=== PATIENT | male | born 1990 | race Caucasian/White ===

== ENCOUNTER 2020-12-15 21:09 | Emergency (ER) | payer SELFPAY ==
[~2020-12-15] VITALS: Ht 188 cm; Wt 81.8 kg
[~2020-12-15 21:09] MED LIST: FAMO-63 PO
--- NOTE | 2020-12-15 21:18 | PHYS DOC ---
Past History Past Medical History: No Pertinent History Past Surgical History: No Surgical History Alcohol Use: None Drug Use: Marijuana General Adult HPI: HPI: ",.., I ve been blacking out when I do Meth, or K2.. this has not happened bef ore.. but it keeps happing the past 2 weeks.. " " My brother is my dealer.. .maybe he is putting something in it.. I never had problems with passing out before when I use drugs.." Patient is a 30 year old male who presents with complaints of blacking out x 4 today after K2, meth and Marijuana.. Patient has history of polysubstance abuse. Patient denies any trauma. Patient denies any specific ill contacts. No recent travel. Patient states that after using meth and K2 he has blacked out. Patient denies any injury. No recent travel. No history mental suppression. Concerned that his drugs have been laced. Patient had similar type complaints on 02/21/2016 of syncope after diarrhea episode. Review of Systems: Review of Systems: Constitutional: Denies fever or chills Eyes: Denies change in visual acuity HENT: Denies nasal congestion or sore throat Respiratory: Denies cough or shortness of breath Cardiovascular: Denies chest pain or edema GI: Denies abdominal pain, nausea, vomiting, bloody stools or diarrhea : Denies dysuria Musculoskeletal: Denies back pain or joint pain Integument: Denies rash Neurologic: Complains of syncope after drug use Endocrine: Denies polyuria or polydipsia Lymphatic: Denies swollen glands Psychiatric: Denies depression or anxiety Family History: Family History: Noncontributory presentation. Current Medications: Current Meds: See nursing for home meds Allergies: Allergies: Allergies Coded Allergies Type Severity Reaction Last Updated Verified No Known Drug Allergies 02/21/16 No Physical Exam: PE: Constitutional: , no acute distress, non-toxic appearance. [] HENT: Normocephalic, atraumatic, bilateral external ears normal, oropharynx moist, no oral exudates, nose swollen turbinates clear rhinorrhea Eyes: PERRLA, EOMI, conjunctiva normal, no discharge. [] Neck: Normal range of motion, no tenderness, supple, no stridor. [] Cardiovascular:Heart rate regular rhythm, no murmur [] Lungs & Thorax: Bilateral breath sounds equal apex less scattered wheezes on auscultation [] Abdomen: Bowel sounds normal, soft, no tenderness, no masses, no pulsatile masses. [] Skin: Warm, dry, no erythema, no rash. [] Back: No tenderness, no CVA tenderness. [] Extremities: No tenderness, no cyanosis, no clubbing, ROM intact, no edema. [] Neurologic: Alert and oriented X 3, normal motor function, normal sensory function, no focal deficits noted. [] DTRs +2 patella and brachial. Amatory without problems. No drift. [employer] Operator equal. Psychologic: Affect anxious, judgement normal, mood normal. [] EKG: EKG: My interpretation EKG shows sinus rhythm at 78 bpm. Nonspecific T wave changes in inferior leads. But no findings of acute STEMI of contralateral changes. [] Radiology/Procedures: Radiology/Procedures: [address] [address] IMAGING REPORT Signed PATIENT: DIANE SERRA ACCOUNT: [id number] : 1990 LOCATION: ER AGE: 30 SEX: M EXAM STATUS: REG ER ORD. PHYSICIAN: REYNA PIKE MD REASON: syncope, FALL PROCEDURE: CT HEAD AND CERVICAL SPINE WO CT HEAD AND C-SPINE WO dated 12/15/2020 9:43 PM Indication:Reason: syncope, FALL / Spl. Instructions: / History: Comparison: No comparison is available. Technique: Helical CT images were obtained. Sagittal and coronal reconstructions were performed. One or more of the following individualized dose reduction techniques were utilized for this examination: 1. Automated exposure control 2. Adjustment of the mA and/or kV according to patient size 3. Use of iterative reconstruction technique Findings: CT head: There is no apparent intracranial hemorrhage or abnormal extra-axial fluid collection. No area of abnormal density is seen in the brain. The ventricles and basilar cisterns are normally positioned. Bone windows demonstrate no apparent fracture of the skull or abnormal mastoid opacification. CT cervical spine: Alignment is normal. There is no loss of vertebral body height or vertebral soft tissue swelling. No fracture line is seen. Intervertebral discs are not narrowed. Evaluation of the soft tissue components of the canal is limited without intrathecal contrast. IMPRESSION: CT head: No acute abnormality. CT cervical spine: No acute abnormality. Electronically signed by: Sharath Mauro Jr., MD (12/15/2020 10:21 PM) [facility] DICTATED AND SIGNED BY: SHARATH MAURO Jr, MD DATE: 12/15/202216 CC: REYNA PIKE MD; PCP,NO ~MTH0 0 [][place] [address] IMAGING REPORT Signed PATIENT: DIANE SERRA ACCOUNT: [id number] : 1990 LOCATION: ER AGE: 30 SEX: M EXAM STATUS: REG ER ORD. PHYSICIAN: REYNA PIKE MD REASON: fall , head injury , syncope PROCEDURE: CT MAXILLOFACIAL WO CONTRAST CT MAXILLOFACIAL WITHOUT CONTRAST dated 12/15/2020 9:43 PM Indication:Reason: fall , head injury , syncope / Spl. Instructions: / History: Comparison: No comparison is available. Technique: Helical noncontrast images were performed. Sagittal and coronal reconstructions were obtained. One or more of the following individualized dose reduction techniques were utilized for this examination: 1. Automated exposure control 2. Adjustment of the mA and/or kV according to patient size 3. Use of iterative reconstruction technique Findings: No facial fracture is seen. The orbital floors appear intact. The nasal septum is mildly deviated to the right. There is some pneumatization of the middle turbinates. No fluid is seen in the sinuses. IMPRESSION: No acute abnormality of the facial bones. Electronically signed by: Sharath Mauro Jr., MD (12/15/2020 10:17 PM) [facility] DICTATED AND SIGNED BY: SHARATH MAURO Jr, MD DATE: 12/15/202213 CC: REYNA PIKE MD; PCP,NO ~MTH0 0 Heart Score: C/O Chest Pain: N/A HEART Score for Chest Pain: HEART Score for Chest Pain Response (Comments) Value History Moderately Suspicious 1 ECG Normal 0 Age < 45 0 Risk Factors 1 or 2 Risk Factors 1 Total 2 Risk Factors: Risk Factors: DM, Current or recent (<one month) smoker, HTN, HLP, family history of CAD, obesity. Risk Scores: Score 0 - 3: 2.5% MACE over next 6 weeks - Discharge Home Score 4 - 6: 20.3% MACE over next 6 weeks - Admit for Clinical Observation Score 7 - 10: 72.7% MACE over next 6 weeks - Early Invasive Strategies Course & Med Decision Making: Course & Med Decision Making Pertinent Labs and Imaging studies reviewed. (See chart for details) Patient refused to give urine during his ED stay. Patient encouraged to stop illicit drug use. Patient follow-up primary care. Patient return if any concerns. Impression: 1. Syncope after drug use 2. History of polysubstance abuse 3. Admits to tobacco, marijuana, methamphetamine and narcotic use 4. Dehydration. 5. Mild hyper Natremia Note patient left AMA before completing ED work-up. [] Dragon Disclaimer: Dragon Disclaimer: This electronic medical record was generated, in whole or in part, using a voice recognition dictation system. Departure Departure: Referrals: PCP,NO (PCP) Alina Disclaimer This chart was dictated in whole or in part using Voice Recognition software in a busy, high-work load, and often noisy Emergency Department environment. It may contain unintended and wholly unrecognized errors or omissions. REYNA PIKE MD Dec 15, 2020 21:18
[2020-12-15] MEDS ORDERED: IV RINGERS SOLUTION,LACTATED 1,000 ML IV SCH (21:30)
[2020-12-15 22:10] LABS: BASO % 0 % (0-3); EOS % 1 % (0-3); HEMATOCRIT 41.6 % (39.0-53.0); LYMPH # 1.5 x10^3/uL (1.0-4.8); LYMPH % 22 % (24-48); MEAN CORPUSCULAR HEMOGLOBIN 31 pg (25-35); MEAN CORPUSCULAR HGB CONC 34 g/dL (31-37); MEAN CORPUSCULAR VOLUME 92 fL (79-100); MONO # 0.5 x10^3/uL (0.0-1.1); MONO % 7 % (0-9); NEUT # 4.8 x10^3uL (1.8-7.7); NEUT % 70 % (31-73); PLATELET COUNT 186 x10^3/uL (140-400); RED BLOOD COUNT 4.52 x10^6/uL (4.30-5.70); RED CELL DISTRIBUTION WIDTH 13.6 % (11.5-14.5); WHITE BLOOD COUNT 6.8 x10^3/uL (4.0-11.0)
--- NOTE | 2020-12-15 22:19 | RAD ---
CT MAXILLOFACIAL WITHOUT CONTRAST dated 12/15/2020 9:43 PM Indication:Reason: fall , head injury , syncope / Spl. Instructions: / History: Comparison: No comparison is available. Technique: Helical noncontrast images were performed. Sagittal and coronal reconstructions were obtai tamara. One or more of the following individualized dose reduction techniques were utilized for this examinat ion: 1. Automated exposure control 2. Adjustment of the mA and/or kV according to patient size 3. Use of iterative reconstruction technique Findings: No facial fracture is seen. The orbital floors appear intact. The nasal septum is mildly deviated to the right. There is some pneumatization of the middle turbinates. No fluid is seen in the sinuses. IMPRESSION: No acute abnormality of the facial bones. Electronically signed by: Errol Malave Jr., MD (12/15/2020 10:17 PM) [facility]
--- NOTE | 2020-12-15 22:23 | RAD ---
CT HEAD AND C-SPINE WO dated 12/15/2020 9:43 PM Indication:Reason: syncope, FALL / Spl. Instructions: / History: Comparison: No comparison is available. Technique: Helical CT images were obtained. Sagittal and coronal reconstructions were performed. One or more of the following individualized dose reduction techniques were utilized for this examinat ion: 1. Automated exposure control 2. Adjustment of the mA and/or kV according to patient size 3. Use of iterative reconstruction technique Findings: CT head: There is no apparent intracranial hemorrhage or abnormal extra-axial fluid collection. No ar ea of abnormal density is seen in the brain. The ventricles and basilar cisterns are normally positio tamara. Bone windows demonstrate no apparent fracture of the skull or abnormal mastoid opacification. CT cervical spine: Alignment is normal. There is no loss of vertebral body height or vertebral soft t issue swelling. No fracture line is seen. Intervertebral discs are not narrowed. Evaluation of the so ft tissue components of the canal is limited without intrathecal contrast. IMPRESSION: CT head: No acute abnormality. CT cervical spine: No acute abnormality. Electronically signed by: Errol Malave Jr., MD (12/15/2020 10:21 PM) [facility]
[2020-12-15 22:24] LABS: ALBUMIN 3.6 g/dL (3.4-5.0); CALCIUM 8.9 mg/dL (8.5-10.1); CREATININE 0.9 mg/dL (0.7-1.3); DIRECT BILIRUBIN 0.1 mg/dL (0.0-0.2); GFR 100.5; POTASSIUM 4.3 mmol/L (3.5-5.1); TOTAL BILIRUBIN 0.3 mg/dL (0.2-1.0)
--- NOTE | 2020-12-15 23:41 | RAD ---
EXAM: XR CHEST 2V DATE: 12/15/2020 9:43 PM INDICATION: Reason: syncope, dyspnea / Spl. Instructions: / History: . COMPARISON: No Prior Findings: The lungs are clear. No pleural fluid is seen. Heart size and pulmonary vascularity appear normal. Impression: No acute abnormality. Electronically signed by: Errol Malave Jr., MD (12/15/2020 11:38 PM) [facility]
[2020-12-16 00:13] VITALS: BP 120/84
--- NOTE | 2020-12-16 06:21 | EKG ---
[address] [address] Test Date: 2020-12-15 Test Time: 23:22:59 Pat Name: DIANE SERRA Department: Room: Gender: M Computer Science Teacher: GHAZAL : 1990 Requested By: REYNA PIKE Order Number: [id number] Reading MD: Measurements Intervals [place] Rate: 78 P: 63 NH: 168 QRS: 90 QRSD: 82 T: -13 QT: 306 QTc: 352 Interpretive Statements SINUS RHYTHM T ABNORMALITY IN INFERIOR LEADS ABNORMAL ECG RI6.02 No previous ECG available for comparison
== END 2020-12-15 23:45 | disposition left against medical advice (07) ==
LOC: ER 21:09
DX: R55 Syncope and collapse (principal); E86.0 Dehydration; F12.10 Cannabis abuse, uncomplicated; F15.10 Other stimulant abuse, uncomplicated
CPT/HCPCS: 36415; 70450; 70486; 71046; 72125; 80048; 80076; 82550; 83690; 83735; 83880; 84443; 84484; 85025; 93005; 96360; 99285; G0480; J7120